=== PATIENT | male | born 1965 | race Caucasian/White ===

== ENCOUNTER 2017-05-23 07:40 | Day surgery (SDC) | payer BC ==
[~2017-05-23 07:40] MED LIST: Dextrose 5%-0.45% NaCl 1,000 ML IV SCH; Midazolam 1 MG/ML 2 ML SDV ONE; Sodium Chloride 0.9% 10 ML Syringe FLUSH PRN; fentaNYL 100 MCG/2 ML SDV ONE
== END 2017-05-23 08:00 | disposition home or self-care (01) ==
LOC: DL.ENDO 07:40
PROVIDERS: ATTEND Internal Medicine Gastroenterology
DX: Z12.11 Encounter for screening for malignant neoplasm of colon (principal); E78.5 Hyperlipidemia, unspecified; Z79.82 Long term (current) use of aspirin; Z79.899 Other long term (current) drug therapy

== ENCOUNTER 2017-05-24 06:29 | Day surgery (SDC) | payer BC ==
[~2017-05-24 06:29] MED LIST changes: -Dextrose 5%-0.45% NaCl 1,000 ML IV SCH; -Sodium Chloride 0.9% 10 ML Syringe FLUSH PRN
[2017-05-24] MEDS ORDERED: Dextrose 5%-0.45% NaCl 1,000 ML IV SCH (07:15)
[2017-05-24] MEDS ORDERED: fentaNYL 100 MCG/2 ML SDV IV ONE ×5 (07:23→15:53)
[2017-05-24] MEDS ORDERED: Midazolam 1 MG/ML 2 ML SDV IV ONE ×9 (07:24→15:53)
[2017-05-24 10:05] VITALS: BP 114/64
--- NOTE | 2017-05-24 12:36 | OR ---
DATE: 05/24/2017 PROCEDURE: Total colonoscopy. INSTRUMENT USED: PCF-160AL Olympus video colonoscope. PREMEDICATIONS: Fentanyl 100 mcg intravenous, Versed 4 mg intravenous, nasal O2 cannula. The procedure was done under pulse oximetry, BP recording, and shelter monitor. INDICATION: Screening colonoscopic examination is done for detection of any polypoid lesions and removal, endoscopic hemostasis therapy if needed. DESCRIPTION OF PROCEDURE: Initial rectal exam was unremarkable. Rigid anoscopy was normal. The colonoscope was passed with ease. Few scattered diverticula been noted in the distal left colon without any deformity. The scope was passed with ease up to the ileocecal area. Photographs were taken of the normal- appearing cecum identified by landmarks of appendiceal orifice and double-bulged ileocecal folds. No bleeding was noted from any of the visualized areas at the commencement of the examination. No stricture. No vascular ectasia. No large isolated ulceration seen. No evidence of diffuse inflammatory bowel disease in the form of friability, contact bleeding, or ulcerations. No polyp or tumor mass identified. Probing the proximal sides of folds and flexures using adequate distention and clearing up the stool material, withdrawal of the scope was made cecum to rectum, time over 6 minutes. No bleeding was noted from any of the visualized areas at the completion of examination. IMPRESSION: Diverticulosis. The patient tolerated the procedure well. [facility] /[id number]
== END 2017-05-24 09:46 | disposition home or self-care (01) ==
LOC: DL.ENDO 06:29
PROVIDERS: ATTEND Internal Medicine Gastroenterology
PROC: 0DJD8ZZ Inspection of Lower Intestinal Tract, Via Natural or Artificial Opening Endoscopic (ICD-10-PCS; principal; 2017-05-24)
DX: Z12.11 Encounter for screening for malignant neoplasm of colon (principal); K57.30 Diverticulosis of large intestine without perforation or abscess without bleeding; E78.5 Hyperlipidemia, unspecified; Z91.09 Other allergy status, other than to drugs and biological substances; Z98.890 Other specified postprocedural states; Z98.52 Vasectomy status; Z79.82 Long term (current) use of aspirin; Z79.899 Other long term (current) drug therapy; Z72.0 Tobacco use; Z72.89 Other problems related to lifestyle; F14.10 Cocaine abuse, uncomplicated
CPT/HCPCS: 45378; J2250; J3010; J7042